=== PATIENT | male | born 1975 | race African-American/Black ===

== ENCOUNTER 2024-04-15 17:30 | Emergency (ER) | payer OTHER, SELFPAY ==
[~2024-04-15 17:30] MED LIST: Iopamidol 370 76% 100 ML VIAL ONE
[2024-04-15] MEDS ORDERED: Lidocaine 1% w/Epinephrine 1:100K 20 ML VIAL ONE (17:50)
[2024-04-15] MEDS ORDERED: Sodium Chloride 0.9% 1,000 ML ONE (18:32)
[2024-04-15 18:42] LABS: Critical Call w/ Read Back ERS.JL@1843; Hematocrit 17.6 % (42.0-52.0); INR-International Normal Ratio 1.2; Mean Corpuscular HGB CONC 28.1 g/dL (32.0-36.0); Mean Corpuscular Volume 56.9 fl (78.0-98.0); Mean Platelet Volume 6.7 fL (7.4-10.4); Platelet Count 703 10x3/uL (130-400); Prothrombin Time 15.5 sec (12.0-14.7); RBC Distribution Width 14.4 % (11.5-14.5); White Blood Cell (WBC) Count 10.6 10x3/uL (4.8-10.8)
[2024-04-15 18:43] LABS: PTT 40.7 sec (22.9-36.1)
[2024-04-15 18:51] LABS: ALT (SGPT) 15 U/L (8-55); AST (SGOT) 14 U/L (5-34); Albumin 2.7 g/dL (3.5-5.0); Alkaline Phosphatase 53 U/L (40-110); Anion Gap 17 mmol/L (10-20); BUN (Urea Nitrogen) 8 mg/dL (8.9-20.6); Bilirubin, Total 0.2 mg/dL (0.2-1.2); Calc. Creatinine Clearance 0 mL/min (70-130); Calcium 9.5 mg/dL (7.8-10.44); Carbon Dioxide 21 mmol/L (22-29); Chloride 102 mmol/L (98-107); Estimated GFR 73; Globulin 5.7 g/dL (2.4-3.5); Glucose 149 mg/dL (70-105); Potassium 3.8 mmol/L (3.5-5.1); Protein, Total 8.4 g/dL (6.0-8.3); Sodium 136 mmol/L (136-145)
[2024-04-15 19:23] LABS: MDiff Complete? YES
[2024-04-15] MEDS ORDERED: Cefepime 2 GM VIAL ONE (19:24)
[2024-04-15] MEDS ORDERED: Sodium Chloride 0.9% 100 ML ONE (19:24)
[2024-04-15 19:38] LABS: Band 2 % (5-11); Eosinophils 1 % (0-10); Lymphocytes 25 % (21-51); Monocytes 6 % (0-10); Neutrophil 65 % (42-75); Other Cell Types 1
[2024-04-15 19:40] LABS: Reflex for Review?? YES
[2024-04-15 19:41] LABS: Anisocytosis SLIGHT = 6-15 cells (100X) (0-5/hpf); Hypochromia MODERATE=16-30 cells (100X) (0-5/hpf); Microcytosis SLIGHT = 6-15 cells (100X) (0-5/hpf); Poikilocytosis SLIGHT = 6-15 cells (100X) (0-5/hpf)
[2024-04-15 19:42] LABS: Ovalocytes SLIGHT = 2-5 cells (100X) (0-1/hpf); Schistocytes SLIGHT = 2-5 cells (100X) (0-1/hpf); Target Cells MODERATE= 6-15 cells (100X) (0-1/hpf)
[2024-04-15 19:44] LABS: Hypersegmented Neutrophil SLIGHT; Large Platelets SLIGHT (None Seen); Platelet Adequacy Comment Platelets Increased; Small Platelets SLIGHT HPF (0-15); Toxic Granulation MODERATE; Vacuoles SLIGHT
[2024-04-15] MEDS ORDERED: Sodium Chloride 0.9% 500 ML ONE (20:43)
[2024-04-15 22:49] LABS: Troponin I Less than 0.010 ng/mL (< 0.028)
== END 2024-04-15 22:26 | disposition short-term general hospital (02) ==
LOC: NAV ERS 17:30
DX: D64.9 Anemia, unspecified (principal); R22.41 Localized swelling, mass and lump, right lower limb; R73.03 Prediabetes
CPT/HCPCS: 36415; 36430; 80053; 83605; 84443; 84484; 85025; 85060; 85610; 85730; 86850; 86900; 86901; 87040; 87070; 87077; 87205; 93005; 96361; 96365; J0692; J7030; P9016; Q9967